=== PATIENT | female | born 1990 | race Caucasian/White ===

== ENCOUNTER 2016-09-27 17:17 | Emergency (ER) | payer OTHER ==
[~2016-09-27] VITALS: Ht 154.9 cm; Wt 59.0 kg
[2016-09-27 18:01] VITALS: BP 116/82
--- NOTE | 2016-09-27 19:30 | NUR ---
PT TAKEN TO OF3
--- NOTE | 2016-09-27 19:33 | NUR ---
PT BIB FAMILY C/O LOWER ABD PAIN AND LOWER ABD PAIN X2 DAYS. PT DENIES N/V/D; SKIN IS INTACT, PINK/WARM/DRY; AAOX4, PERRL, WITH EVEN AND STEADY GAIT; LUNGS CLEAR BL, BREATHING UNLABORED; HR EVEN AND REGULAR, BL PERIPHERAL PULSES PRESENT; BS ACTIVE X4, NO TENDERNESS TO PALPATION. PT DENIES ANY FEVER, CP, SOB, OR COUGH AT THIS TIME; PT STATES 4/10 PAIN AT THIS TIME; VSS; PATIENT POSITIONED FOR COMFORT; HOB ELEVATED; BEDRAILS UP X2; BED DOWN.
--- NOTE | 2016-09-27 19:33 | NUR ---
Dr. Gottlieb evaluating patient
--- NOTE | 2016-09-27 20:13 | NUR ---
PT RETURN FROM ULTRASOUND
--- NOTE | 2016-09-27 20:33 | NUR ---
Patient discharged with v/s stable. Written and verbal after care instructions given and explained. Patient alert, oriented and verbalized understanding of instructions. Ambulatory with steady gait. All questions addressed prior to discharge. ID band removed. Patient advised to follow up with PMD. Rx of CIPRO,NAPROSYN,TYLENOL given. Patient educated on indication of medication including possible reaction and side effects. Opportunity to ask questions provided and answered.
[2016-09-27 20:35] VITALS: BP 114/79
== END 2016-09-27 20:33 | disposition home or self-care (01) ==
LOC: MED 17:17
DX: N83.209 Unspecified ovarian cyst, unspecified side (principal); N39.0 Urinary tract infection, site not specified; F17.210 Nicotine dependence, cigarettes, uncomplicated

== ENCOUNTER 2017-02-22 03:10 | Emergency (ER) | payer OTHER ==
[~2017-02-22] VITALS: Ht 152.4 cm; Wt 61.2 kg
[2017-02-22 03:26] VITALS: BP 132/92
[2017-02-22 03:55] VITALS: BP 134/90
== END 2017-02-22 03:55 | disposition home or self-care (01) ==
LOC: MED 03:10
DX: L03.113 Cellulitis of right upper limb (principal); R03.0 Elevated blood-pressure reading, without diagnosis of hypertension

== ENCOUNTER 2017-02-27 10:13 | Emergency (ER) | payer OTHER ==
[~2017-02-27] VITALS: Ht 152.4 cm; Wt 61.2 kg
[2017-02-27 10:16] VITALS: BP 122/98
--- NOTE | 2017-02-27 10:23 | NUR ---
Patient ambulated to bed 7. RN evaluating patient at bedside.
--- NOTE | 2017-02-27 10:23 | NUR ---
26F BIB FAMILY C/O RT FOREARM REDNESS & SWELLING & PAIN X 4 DAYS; PT STATES NO TRAUMA OR INJURY TO SITE AT THIS TIME.AAOX4 WITH EVEN AND STEADY GAIT; LUNGS CLEAR BL;PATIENT STATES PAIN OF 8/10 AT THIS TIME; PATIENT POSITIONED FOR COMFORT; HOB ELEVATED; BEDRAILS UP X2; BED DOWN. ER MD MADE AWARE OF PT STATUS.
--- NOTE | 2017-02-27 10:31 | NUR ---
Dr. Vale evaluating patient at bedside.
--- NOTE | 2017-02-27 10:52 | NUR ---
Patient discharged with v/s stable. Written and verbal after care instructions given and explained. Patient alert, oriented and verbalized understanding of instructions. Ambulatory with steady gait. All questions addressed prior to discharge. ID band removed. Patient advised to follow up with PMD. Rx of CLINDAMYCIN given. Patient educated on indication of medication including possible reaction and side effects. Opportunity to ask questions provided and answered.
[2017-02-27 10:57] VITALS: BP 120/91
== END 2017-02-27 10:52 | disposition home or self-care (01) ==
LOC: MED 10:13
DX: L03.113 Cellulitis of right upper limb (principal); R03.0 Elevated blood-pressure reading, without diagnosis of hypertension; F17.200 Nicotine dependence, unspecified, uncomplicated; F12.10 Cannabis abuse, uncomplicated
CPT/HCPCS: 99283

== ENCOUNTER 2018-08-14 13:57 | Emergency (ER) | payer OTHER ==
[~2018-08-14] VITALS: Ht 152.4 cm; Wt 65.8 kg
[2018-08-14 14:33] VITALS: BP 115/62
--- NOTE | 2018-08-14 14:39 | NUR ---
VSS, PATIENT PROVIDED URINE SAMPLE VIA TRIAGE, PATIENT WAITING IN THE LOBBY VIA WHEELCHAIR, PATIENT STABLE.
--- NOTE | 2018-08-14 16:24 | NUR ---
PT TAKEN TO BED 12 VIA WHEELCHAIR
[2018-08-14] MEDS ORDERED: KETOROLAC 30 MG/ML VIAL IM ONE (16:40)
[2018-08-14] MEDS ORDERED: ACETAMINOPHEN EXTRA STRENGTH 500 MG TAB PO ONE (17:00)
--- NOTE | 2018-08-14 17:00 | NUR ---
LEFT FOOT COMPLAINT, STARTING YESTERDAY
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
--- NOTE | 2018-08-14 17:05 | NUR ---
PT STATES SHE DOES NOT WANT ANY MEDICATION GIVEN IM
[2018-08-14 17:26] VITALS: BP 120/72
== END 2018-08-14 17:26 | disposition home or self-care (01) ==
LOC: MED 13:57
DX: S92.355A Nondisplaced fracture of fifth metatarsal bone, left foot, initial encounter for closed fracture (principal); X58.XXXA Exposure to other specified factors, initial encounter; Y93.02 Activity, running; Y92.89 Other specified places as the place of occurrence of the external cause; Y99.8 Other external cause status
CPT/HCPCS: 29515; 73630; 81002; 81025; 99283; J1885

== ENCOUNTER 2019-01-08 22:07 | Emergency (ER) | payer OTHER ==
[~2019-01-08] VITALS: Ht 152.4 cm; Wt 63.5 kg
[2019-01-08 22:22] VITALS: BP 126/78
--- NOTE | 2019-01-08 22:24 | NUR ---
PT AMBULATED TO BED 7. Addendum: 01/08/19 at 2225 by MEDJ PT AMBULATED TO BED 6.
--- NOTE | 2019-01-08 22:44 | NUR ---
PT CAME TO ER C/O OF DIZZINESS X 2 HOURS. PT HAS FELT THIS WAY IN THE PAST. PT ALSO HAS TINGLING AND NUMBNESS TO HANDS THAT COMES AND GOES. PT DENIES ANY PAIN, PAIN LEVEL 0/10. NKA. NO MED HX. SAFETY MEASURES IN PLACE. WAITING FOR ERMD TO EVALUATE PT.
--- NOTE | 2019-01-08 23:00 | NUR ---
PT AMBULATED TO RESTROOM
[2019-01-08] MEDS: LORazepam 2 MG/ML VIAL IM ONE (23:17)
[2019-01-08 23:40] VITALS: BP 126/78
--- NOTE | 2019-01-08 23:41 | NUR ---
Patient discharged with v/s stable. Written and verbal after care instructions given and explained. Patient verbalized understanding. Ambulatory with steady gait. All questions addressed prior to discharge. Advised to follow up with PMD.
== END 2019-01-08 23:41 | disposition home or self-care (01) ==
LOC: MED 22:07
DX: F41.9 Anxiety disorder, unspecified (principal); R42 Dizziness and giddiness
CPT/HCPCS: 81025; 96372; 99284; J2060

== ENCOUNTER 2020-09-25 21:10 | Emergency (ER) | payer OTHER ==
[~2020-09-25] VITALS: Ht 172.7 cm; Wt 82.1 kg
[2020-09-25 21:31] VITALS: BP 114/84
--- NOTE | 2020-09-25 21:36 | NUR ---
PT AMBULATED TO BED 02.
[2020-09-25 22:10] LABS: BASOPHILS % (AUTO) 0.4 % (0.0-2.0); EOSINOPHILS # (AUTO) 0.1 K/uL (0-0.4); EOSINOPHILS % (AUTO) 1.5 % (0.0-4.0); HEMATOCRIT 39.5 % (36-48); HEMOGLOBIN 13.4 g/dL (12.0-16.0); LYMPHOCYTES # (AUTO) 2.4 K/uL (2.5-16.5); LYMPHOCYTES % (AUTO) 29.2 % (20.5-51.1); MEAN CORPUSCULAR HEMOGLOBIN 30 pg (27-31); MEAN CORPUSCULAR HGB CONC 34 g/dL (33-37); MEAN CORPUSCULAR VOLUME 87.2 fL (80-94); MONOCYTES # (AUTO) 1.1 K/uL (0.8-1.0); MONOCYTES % (AUTO) 12.8 % (1.7-9.3); NEUTROPHILS # (AUTO) 4.7 K/uL (1.8-7.7); NEUTROPHILS % (AUTO) 56.1 % (42.2-75.2); PLATELET COUNT (AUTO) 299 K/uL (140-450); RED BLOOD CELL COUNT(AUTO) 4.53 MIL/uL (4.20-5.40); WHITE BLOOD COUNT (AUTO) 8.4 K/uL (4.8-10.8)
[2020-09-25 22:34] LABS: ALBUMIN 4.1 g/dL (3.4-5.0); ANION GAP 7.8 (8-16); CARBON DIOXIDE 31.8 mmol/L (21-32); CREATININE 1.1 mg/dL (0.6-1.3); POTASSIUM 4.6 mmol/L (3.5-5.1); TOTAL BILIRUBIN 0.2 mg/dL (0.0-1.0)
--- NOTE | 2020-09-25 22:47 | NUR ---
PATIENT ELOPED FROM FACILITY. DISCHARGE INSTRUCTIONS NOT GIVEN TO PATIENT. DR. PAGAN NOTIFIED.
[2020-09-26] MEDS ORDERED: CEPH500C16 PO (01:48)
== END 2020-09-25 22:47 | disposition left against medical advice (07) ==
LOC: MED 21:10
DX: R10.2 Pelvic and perineal pain (principal); Z53.21 Procedure and treatment not carried out due to patient leaving prior to being seen by health care provider
CPT/HCPCS: 36415; 80053; 83690; 84702; 85025; 99283

== ENCOUNTER 2020-09-25 23:49 | Emergency (ER) | payer OTHER ==
[~2020-09-25] VITALS: Ht 154.9 cm; Wt 81.2 kg
[2020-09-26 00:05] VITALS: BP 133/91
--- NOTE | 2020-09-26 00:06 | NUR ---
To ED bed 05.
[2020-09-26] MEDS ORDERED: ACETAMINOPHEN EXTRA STRENGTH 500 MG TAB PO ONE (00:20)
--- NOTE | 2020-09-26 00:20 | NUR ---
PATIENT BIB SELF FOR C/O R GROIN/RLQ PAIN X 2 DAYS. A & O X4. PATIENT STATES SHE WAS MOVING HER BED WHEN SHE FELT THE PAIN. PATIENT DENIES N/V/D, FEVER, CHILLS. PATIENT DENIES URINARY SYMPTOMS OF BURNING, FREQUENCY, URGENCY AT THIS TIME. VSS. SEE COMPLETE ASSESSMENT FOR FURTHER DETAILS. MED HX: OVARIAN CYSTS ALLERGIES: NKA
[2020-09-26 00:38] LABS: APPEARANCE,URINE CLOUDY (CLEAR); BILIRUBIN,URINE NEGATIVE (NEGATIVE); BLOOD, URINE NEGATIVE (NEGATIVE); COLOR,URINE YELLOW (YELLOW); LEUKOCYTE ESTERASE ,URINE NEGATIVE (NEGATIVE); NITRITE, URINE POSITIVE (NEGATIVE); UGLUCOSE NEGATIVE (NEGATIVE)
[2020-09-26 00:49] LABS: RBC,URINE 0-5 /HPF (0-5)
--- NOTE | 2020-09-26 01:05 | NUR ---
ULTRASOUND AT BEDSIDE.
[2020-09-26] MEDS ORDERED: cefTRIAXone 1,000 MG in LIDOCAINE MPF 1% 2.1 ML IM ONE (01:25)
[2020-09-26] MEDS ORDERED: LIDOCAINE MPF 1% 5 ML ONE (01:37)
[2020-09-26] MEDS ORDERED: cefTRIAXone 1,000 MG VIAL ONE (01:37)
[2020-09-26] MEDS ORDERED: CEPH500C16 PO (01:48)
[2020-09-26 01:53] VITALS: BP 133/91
== END 2020-09-26 01:53 | disposition home or self-care (01) ==
LOC: MED 23:49
DX: N39.0 Urinary tract infection, site not specified (principal); Z79.899 Other long term (current) drug therapy
CPT/HCPCS: 76856; 81001; 81025; 87086; 96372; 99284; J0696; J2001

== ENCOUNTER 2021-08-15 05:26 | Emergency (ER) | payer OTHER ==
[~2021-08-15] VITALS: Ht 165.1 cm; Wt 72.6 kg
[2021-08-15 05:26] VITALS: BP 130/85
[~2021-08-15 05:26] MED LIST: CEPH500C16 PO
--- NOTE | 2021-08-15 05:26 | NUR ---
TO BED AMBULATORY
--- NOTE | 2021-08-15 05:27 | NUR ---
30yo f bib self with c/c of sob x1hr. pt states she feels scared and "weird". pt reports rt 10/10 leg pain x1wk. pt states she feel chest discomfort, pressure like that began while sitting. pt reports heart palpitations. pt becomes agitated after asking several questions. pt report lip tingling. denies hx. states she has anxiety sometimes. denies hx, rx and allergies lmp:last week
--- NOTE | 2021-08-15 05:52 | NUR ---
at bedside examining pt.
--- NOTE | 2021-08-15 06:08 | NUR ---
RAD AT BEDSIDE
--- NOTE | 2021-08-15 06:19 | NUR ---
Dr. Cantrell examining patient.
[2021-08-15] MEDS ORDERED: LORazepam 2 MG/ML VIAL ONE (06:29)
[2021-08-15] MEDS ORDERED: LORazepam 2 MG/ML VIAL IVP ONE (06:30)
[2021-08-15 06:37] LABS: ALBUMIN 4.3 g/dL (3.4-5.0); ANION GAP 16.7 (8-16); CARBON DIOXIDE 24.8 mmol/L (21-32); CREATININE 0.9 mg/dL (0.6-1.3); POTASSIUM 3.5 mmol/L (3.5-5.1); TOTAL BILIRUBIN 0.3 mg/dL (0.0-1.0)
[2021-08-15 06:38] LABS: ACETAMINOPHEN < 0.5 ug/ml (10-30); SALICYLATE 2.8 mg/dL (2.8-20.0)
[2021-08-15 06:45] LABS: BARBITURATE, URINE NEGATIVE ng/ml (NEG <=200); BENZODIAZEPINE, URINE NEGATIVE ng/mL (NEG <=200); CANNABINOID, URINE NEGATIVE ng/mL (NEG <=50); COCAINE, URINE NEGATIVE ng/mL (NEG <=300); OPIATE, URINE NEGATIVE ng/mL (NEG <=2000); PHENCYCLIDINE SCREEN,URINE NEGATIVE ng/mL (NEG <=25)
--- NOTE | 2021-08-15 07:11 | NUR ---
REPORT GIVEN TO FAZAL FAM. TRANSFER OF CARE AT THIS TIME.
[2021-08-15 07:15] LABS: CREATINE KINASE MB 1.4 ng/mL (0-3.6)
--- NOTE | 2021-08-15 07:17 | NUR ---
Report received from FAZAL Olivares. Patient is resting on bed.
[2021-08-15] MEDS ORDERED: NACL 0.9% 500 ML IV ONE (07:30)
--- NOTE | 2021-08-15 08:03 | NUR ---
Dr. Cantrell at bedside evaluating patient.
[2021-08-15 08:41] LABS: BASOPHILS % (AUTO) 0.4 % (0.0-2.0); EOSINOPHILS # (AUTO) 0.1 K/uL (0-0.4); EOSINOPHILS % (AUTO) 0.8 % (0.0-4.0); HEMATOCRIT 40.9 % (36-48); LYMPHOCYTES # (AUTO) 3.1 K/uL (2.5-16.5); LYMPHOCYTES % (AUTO) 30.4 % (20.5-51.1); MEAN CORPUSCULAR HEMOGLOBIN 30 pg (27-31); MEAN CORPUSCULAR HGB CONC 34 g/dL (33-37); MEAN CORPUSCULAR VOLUME 86.7 fL (80-94); MONOCYTES # (AUTO) 1.1 K/uL (0.8-1.0); MONOCYTES % (AUTO) 10.4 % (1.7-9.3); NEUTROPHILS # (AUTO) 5.9 K/uL (1.8-7.7); PLATELET COUNT (AUTO) 364 K/uL (140-450); RED BLOOD CELL COUNT(AUTO) 4.71 MIL/uL (4.20-5.40); WHITE BLOOD COUNT (AUTO) 10.1 K/uL (4.8-10.8)
[2021-08-15 10:11] VITALS: BP 96/68
--- NOTE | 2021-08-15 10:11 | NUR ---
Patient discharged with v/s stable. Written and verbal after care instructions given. Patient verbalized understanding. Ambulatory with steady gait. All questions addressed prior to discharge. Advised to follow up with PMD.
== END 2021-08-15 10:11 | disposition home or self-care (01) ==
LOC: MED 05:26
DX: F15.90 Other stimulant use, unspecified, uncomplicated (principal); R00.0 Tachycardia, unspecified; R07.89 Other chest pain
CPT/HCPCS: 36415; 71045; 80053; 80305; 81025; 82550; 82553; 83880; 84443; 84484; 85025; 85379; 93005; 96361; 96374; 99285; G0480; G0482; J2060; J7030; Q0092

== ENCOUNTER 2022-03-31 02:27 | Emergency (ER) | payer OTHER ==
[~2022-03-31] VITALS: Ht 154.9 cm; Wt 77.1 kg
[2022-03-31 02:56] VITALS: BP 124/60
--- NOTE | 2022-03-31 03:00 | NUR ---
TO LOBBY A/W BED AMBULATORY
--- NOTE | 2022-03-31 04:23 | NUR ---
PATIENT LEFT WITHOUT BEING SEEN BY DR. SMITH. NO FURTHER CARE PROVIDED FOR PATIENT.
--- NOTE | 2022-03-31 04:23 | NUR ---
ATTEMPT TO CALL PT IN LOBBY AND OUTSIDE, NO RESPONSE
--- NOTE | 2022-03-31 04:28 | NUR ---
PT CALLED SECOND TIME NO RESPONSE
--- NOTE | 2022-03-31 04:40 | NUR ---
PT CALLED 3RD TIME, NO RESPONSE
== END 2022-03-31 04:23 | disposition left against medical advice (07) ==
LOC: MED 02:27
DX: R51.9 Headache, unspecified (principal); Z53.21 Procedure and treatment not carried out due to patient leaving prior to being seen by health care provider